=== PATIENT | male | born 1995 | race African-American/Black ===

== ENCOUNTER 2019-07-26 22:37 | Emergency (ER) | payer OTHER ==
[~2019-07-26] VITALS: Ht 190.5 cm; Wt 149.7 kg
[~2019-07-26 22:37] MED LIST: PRED50TA PO; PROAIR RESPICL90 MCG IH
[2019-07-26 23:05] LABS: BASO # 0.1 x10^3/uL (0.0-0.2); BASO % 1 % (0-3); EOS # 0.5 x10^3/uL (0.0-0.7); EOS % 6 % (0-3); HEMATOCRIT 43.6 % (39.0-53.0); HEMOGLOBIN 15.3 g/dL (13.0-17.5); LYMPH # 3.1 x10^3/uL (1.0-4.8); LYMPH % 40 % (24-48); MEAN CORPUSCULAR HEMOGLOBIN 33 pg (25-35); MEAN CORPUSCULAR HGB CONC 35 g/dL (31-37); MEAN CORPUSCULAR VOLUME 94 fL (79-100); MONO # 0.5 x10^3/uL (0.0-1.1); MONO % 6 % (0-9); NEUT # 3.6 x10^3/uL (1.8-7.7); NEUT % 46 % (31-73); PLATELET COUNT 216 x10^3/uL (140-400); RED BLOOD COUNT 4.66 x10^6/uL (4.30-5.70); WHITE BLOOD COUNT 7.7 x10^3/uL (4.0-11.0)
[2019-07-26 23:18] LABS: CALCIUM 9.5 mg/dL (8.5-10.1); CREATININE 1.1 mg/dL (0.7-1.3); GFR 97.9; POTASSIUM 4.3 mmol/L (3.5-5.1)
[2019-07-26 23:24] LABS: ALBUMIN 3.7 g/dL (3.4-5.0); ALBUMIN/GLOBULIN RATIO 0.9 (1.0-1.7); TOTAL BILIRUBIN 0.3 mg/dL (0.2-1.0); TOTAL PROTEIN 7.7 g/dL (6.4-8.2)
[2019-07-27 01:23] VITALS: BP 144/80
--- NOTE | 2019-07-27 01:34 | PHYS DOC ---
Past Medical History Past Medical History: No Pertinent History Past Surgical History: No Surgical History Alcohol Use: Occasionally Drug Use: Marijuana Adult General Chief Complaint Chief Complaint: LOWER EXTREMITY SWELLING HPI HPI Patient is a 24 year old [f__sex] who presents with [] Review of Systems Review of Systems Constitutional: Denies fever or chills [] Eyes: Denies change in visual acuity, redness, or eye pain [] HENT: Denies nasal congestion or sore throat [] Respiratory: Denies cough or shortness of breath [] Cardiovascular: No additional information not addressed in HPI [] GI: Denies abdominal pain, nausea, vomiting, bloody stools or diarrhea [] : Denies dysuria or hematuria [] Musculoskeletal: Denies back pain or joint pain [] Integument: Denies rash or skin lesions [] Neurologic: Denies headache, focal weakness or sensory changes [] Endocrine: Denies polyuria or polydipsia [] All other systems were reviewed and found to be within normal limits, except as documented in this note. Allergies Allergies Allergies Coded Allergies Type Severity Reaction Last Updated Verified No Known Drug Allergies 10/16/13 No Physical Exam Physical Exam Constitutional: Well developed, well nourished, no acute distress, non-toxic appearance. [] HENT: Normocephalic, atraumatic, bilateral external ears normal, oropharynx moist, no oral exudates, nose normal. [] Eyes: PERRLA, EOMI, conjunctiva normal, no discharge. [] Neck: Normal range of motion, no tenderness, supple, no stridor. [] Cardiovascular:Heart rate regular rhythm, no murmur [] Lungs & Thorax: Bilateral breath sounds clear to auscultation [] Abdomen: Bowel sounds normal, soft, no tenderness, no masses, no pulsatile mas ses. [] Skin: Warm, dry, no erythema, no rash. [] Back: No tenderness, no CVA tenderness. [] Extremities: No tenderness, no cyanosis, no clubbing, ROM intact, no edema. [] Neurologic: Alert and oriented X 3, normal motor function, normal sensory function, no focal deficits noted. [] Psychologic: Affect normal, judgement normal, mood normal. [] Current Patient Data Vital Signs Vital Signs Date Time Temp Pulse Resp B/P (MAP) Pulse Ox O2 Delivery O2 Flow Rate FiO2 07/26/19 22:40 97.9 72 16 164/75 (104) 97 Room Air 97.9 Lab Values Laboratory Tests Test 07/26/19 22:50 07/26/19 23:45 White Blood Count 7.7 x10^3/uL (4.0-11.0) Red Blood Count 4.66 x10^6/uL (4.30-5.70) Hemoglobin 15.3 g/dL (13.0-17.5) Hematocrit 43.6 % (39.0-53.0) Mean Corpuscular Volume 94 fL (79-100) Mean Corpuscular Hemoglobin 33 pg (25-35) Mean Corpuscular Hemoglobin Concent 35 g/dL (31-37) Red Cell Distribution Width 14.0 % (11.5-14.5) Platelet Count 216 x10^3/uL (140-400) Neutrophils (%) (Auto) 46 % (31-73) Lymphocytes (%) (Auto) 40 % (24-48) Monocytes (%) (Auto) 6 % (0-9) Eosinophils (%) (Auto) 6 % (0-3) H Basophils (%) (Auto) 1 % (0-3) Neutrophils # (Auto) 3.6 x10^3/uL (1.8-7.7) Lymphocytes # (Auto) 3.1 x10^3/uL (1.0-4.8) Monocytes # (Auto) 0.5 x10^3/uL (0.0-1.1) Eosinophils # (Auto) 0.5 x10^3/uL (0.0-0.7) Basophils # (Auto) 0.1 x10^3/uL (0.0-0.2) Sodium Level 142 mmol/L (136-145) Potassium Level 4.3 mmol/L (3.5-5.1) Chloride Level 105 mmol/L (98-107) Carbon Dioxide Level 28 mmol/L (21-32) Anion Gap 9 (6-14) Blood Urea Nitrogen 13 mg/dL (8-26) Creatinine 1.1 mg/dL (0.7-1.3) Estimated GFR (Cockcroft-Gault) 97.9 BUN/Creatinine Ratio 12 (6-20) Glucose Level 91 mg/dL (70-99) Calcium Level 9.5 mg/dL (8.5-10.1) Total Bilirubin 0.3 mg/dL (0.2-1.0) Aspartate Amino Transferase (AST) 40 U/L (15-37) H Alanine Aminotransferase (ALT) 36 U/L (16-63) Alkaline Phosphatase 70 U/L (46-116) Troponin I Quantitative < 0.017 ng/mL (0.000-0.055) [id number]-Type Natriuretic Peptide 13 pg/mL (0-124) Total Protein 7.7 g/dL (6.4-8.2) Albumin 3.7 g/dL (3.4-5.0) Albumin/Globulin Ratio 0.9 (1.0-1.7) L D-Dimer (Ely) 0.32 ug/mlFEU (0.00-0.50) Laboratory Tests 07/26/19 22:50 Laboratory Tests 07/26/19 22:50 EKG EKG [] Radiology/Procedures Radiology/Procedures [] Course & Med Decision Making Course & Med Decision Making Pertinent Labs and Imaging studies reviewed. (See chart for details) [] Dragon Disclaimer Dragon Disclaimer This electronic medical record was generated, in whole or in part, using a voice recognition dictation system. Departure Departure Impression: Primary Impression: Lower extremity edema Disposition: 01 HOME, SELF-CARE Condition: STABLE Referrals: NO PCP (PCP) Patient Instructions: Edema, [id number] Additional Instructions: Labs and imaging reviewed Chest xray without pulmonary edema Ddimer (DVT marker) is negative Return to the ER with shortness of breath, fever, increased lower extremity edema, altered mental status CHRISTI HWANG MD Jul 27, 2019 01:34
--- NOTE | 2019-07-27 04:01 | PHYS DOC ---
Past Medical History Past Medical History: No Pertinent History Past Surgical History: No Surgical History Alcohol Use: Occasionally Drug Use: Marijuana Adult General Chief Complaint Chief Complaint: LOWER EXTREMITY SWELLING [facility] HPI Patient is a 24 year old male with complaints of bilateral lower ext swelling. He states left leg is worse than right. Denies fever, pain, chest pain, nausea. Does complain of SOB on exam however intermittent. Patient denies history of blood clot. States he does smoke and use ETOH. Patient states swelling is worse after being on his feet all day. Review of Systems Review of Systems Constitutional: Denies fever or chills [] Eyes: Denies change in visual acuity, redness, or eye pain [] HENT: Denies nasal congestion or sore throat [] Respiratory: SOB Cardiovascular: No additional information not addressed in HPI [] GI: Denies abdominal pain, nausea, vomiting, bloody stools or diarrhea [] Musculoskeletal: Denies back pain or joint pain, + bilateral lower ext edema [] Integument: Denies rash or skin lesions [] Neurologic: Denies headache, focal weakness or sensory changes [] All other systems were reviewed and found to be within normal limits, except as documented in this note. Allergies Allergies Allergies Coded Allergies Type Severity Reaction Last Updated Verified No Known Drug Allergies 10/16/13 No Physical Exam Physical Exam Constitutional: Well developed, well nourished, no acute distress, non-toxic appearance. [] HENT: Normocephalic, atraumatic, bilateral external ears normal, oropharynx moist, no oral exudates, nose normal. [] Eyes: PERRLA, EOMI, conjunctiva normal, no discharge. [] Cardiovascular:Heart rate regular rhythm, no murmur [] Lungs & Thorax: Bilateral breath sounds clear to auscultation [] Abdomen: Bowel sounds normal, soft, no tenderness, no masses, no pulsatile masses. [] Skin: Warm, dry, no erythema, no rash. [] Extremities: No tenderness, no cyanosis, no clubbing, trace edema bilateral lower ext Neurologic: Alert and oriented X 3, no focal deficits noted. [] Psychologic: Affect normal, judgement normal, mood normal. [] Current Patient Data Vital Signs Vital Signs Date Time Temp Pulse Resp B/P (MAP) Pulse Ox O2 Delivery O2 Flow Rate FiO2 07/27/19 01:23 70 18 144/80 (101) 95 Room Air 9/21/19 22:40 97.9 97.9 Lab Values Laboratory Tests Test 07/26/19 22:50 07/26/19 23:45 White Blood Count 7.7 x10^3/uL (4.0-11.0) Red Blood Count 4.66 x10^6/uL (4.30-5.70) Hemoglobin 15.3 g/dL (13.0-17.5) Hematocrit 43.6 % (39.0-53.0) Mean Corpuscular Volume 94 fL (79-100) Mean Corpuscular Hemoglobin 33 pg (25-35) Mean Corpuscular Hemoglobin Concent 35 g/dL (31-37) Red Cell Distribution Width 14.0 % (11.5-14.5) Platelet Count 216 x10^3/uL (140-400) Neutrophils (%) (Auto) 46 % (31-73) Lymphocytes (%) (Auto) 40 % (24-48) Monocytes (%) (Auto) 6 % (0-9) Eosinophils (%) (Auto) 6 % (0-3) H Basophils (%) (Auto) 1 % (0-3) Neutrophils # (Auto) 3.6 x10^3/uL (1.8-7.7) Lymphocytes # (Auto) 3.1 x10^3/uL (1.0-4.8) Monocytes # (Auto) 0.5 x10^3/uL (0.0-1.1) Eosinophils # (Auto) 0.5 x10^3/uL (0.0-0.7) Basophils # (Auto) 0.1 x10^3/uL (0.0-0.2) Sodium Level 142 mmol/L (136-145) Potassium Level 4.3 mmol/L (3.5-5.1) Chloride Level 105 mmol/L (98-107) Carbon Dioxide Level 28 mmol/L (21-32) Anion Gap 9 (6-14) Blood Urea Nitrogen 13 mg/dL (8-26) Creatinine 1.1 mg/dL (0.7-1.3) Estimated GFR (Cockcroft-Gault) 97.9 BUN/Creatinine Ratio 12 (6-20) Glucose Level 91 mg/dL (70-99) Calcium Level 9.5 mg/dL (8.5-10.1) Total Bilirubin 0.3 mg/dL (0.2-1.0) Aspartate Amino Transferase (AST) 40 U/L (15-37) H Alanine Aminotransferase (ALT) 36 U/L (16-63) Alkaline Phosphatase 70 U/L (46-116) Troponin I Quantitative < 0.017 ng/mL (0.000-0.055) JA-Vho-Z-Type Natriuretic Peptide 13 pg/mL (0-124) Total Protein 7.7 g/dL (6.4-8.2) Albumin 3.7 g/dL (3.4-5.0) Albumin/Globulin Ratio 0.9 (1.0-1.7) L D-Dimer (Ely) 0.32 ug/mlFEU (0.00-0.50) Laboratory Tests 07/26/19 22:50 Laboratory Tests 07/26/19 22:50 EKG EKG [] Radiology/Procedures Radiology/Procedures Chest xray without evidence of acute process - wet read[] Course & Med Decision Making Course & Med Decision Making Pertinent Labs and Imaging studies reviewed. (See chart for details) []Patient is a 24 year old male with complaints of bilateral lower ext swelling. He states left leg is worse than right. Denies fever, pain, chest pain, nausea. Does complain of SOB on exam however intermittent. Patient denies history of blood clot. States he does smoke and use ETOH. Patient states swelling is worse after being on his feet all day. Labs/imaging reviewed. Ddimer within normal limits. CXR reviewed without acute consolidation. Plan for dc home. Discussed with patient no acute findings. Dragon Disclaimer Dragon Disclaimer This electronic medical record was generated, in whole or in part, using a voice recognition dictation system. Departure Departure Impression: Primary Impression: Lower extremity edema Disposition: HOME, SELF-CARE Condition: STABLE Referrals: NO PCP (PCP) Patient Instructions: Edema, [id number] Additional Instructions: Labs and imaging reviewed Chest xray without pulmonary edema Ddimer (DVT marker) is negative Return to the ER with shortness of breath, fever, increased lower extremity edema, altered mental status CHRISTI HWANG MD Jul 27, 2019 04:01
--- NOTE | 2019-07-27 06:54 | RAD ---
EXAM: CHEST 1 VIEW History: Dyspnea COMPARISON: 10/16/2013 TECHNIQUE: Single portable radiograph of the chest FINDINGS: The cardiac silhouette is unremarkable. Improved airspace opacities identified in the bilateral lungs. The costophrenic sulci are clear and well demarcated. IMPRESSION: Improved airspace opacities identified in the bibasilar lungs likely atelectasis or infiltrates. Electronically signed by: Lawrence Galindo MD (07/27/2019 6:51 AM) [facility]
--- NOTE | 2019-07-28 06:14 | EKG ---
[facility] [address] [place] [address] Test Date: 2019-07-26 Test Time: 23:31:26 Pat Name: AGUSTÍN HOOD Department: Room: Gender: M Package Winder: : 1995 Requested By: CHRISTI HWANG Order Number: [id number] Reading MD: Measurements Intervals [place] Rate: 75 P: 42 WY: 210 QRS: 58 QRSD: 86 T: 28 QT: 366 QTc: 415 Interpretive Statements SINUS RHYTHM NON SPECIFIC ST-T ABNORMALITY (ELEVATION) OTHERWISE NORMAL ECG No previous ECG available for comparison
== END 2019-07-27 01:55 | disposition home or self-care (01) ==
LOC: ER 22:37
DX: R60.0 Localized edema (principal); R06.00 Dyspnea, unspecified
CPT/HCPCS: 36415; 71045; 80053; 83880; 84484; 85025; 85379; 93005; 99285-25

== ENCOUNTER 2021-12-21 11:04 | Observation (INO) | payer OTHER ==
[~2021-12-21] VITALS: Ht 190.5 cm; Wt 170.4 kg
--- NOTE | 2021-12-21 11:08 | PHYS DOC ---
Past Medical History Past Medical History: No Pertinent History Past Surgical History: No Surgical History Smoking Status: Current Every Day Smoker Alcohol Use: Occasionally Drug Use: Marijuana General Adult EDM: Chief Complaint: CHEST PAIN HPI: HPI: Patient is a 26 year old male who presents here with chest pain which woke him up around 1 AM today. The pain is progressive he worsened since that time. The pain is midsternal, does not radiate. He reports dyspnea, dizziness, diaphoresis. He denies vomiting, he did have some nausea earlier, this is currently resolved. He denies lower extremity pain or swelling. He denies syncope or near syncope. He denies any previous similar symptoms. He is diaphoretic on arrival. He reports that he has gained 100 pounds within the last year. He last saw primary care doctor over a year ago when he lived in [place]. He reports having no known medical problems. He reportedly has not been told he has hypertension, though he is hypertensive on arrival. He reports having never been prescribed any medications for any chronic health issues. He smokes tobacco, smokes marijuana, drinks alcohol heavily on the weekends. 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 He does not currently have a primary care physician here in the area. Patient reports full family members with history of hypertension and high cholesterol and heart disease. Review of Systems: Review of Systems: Constitutional: Denies fever or chills. [] HENT: Denies nasal congestion or sore throat. [] Respiratory: Denies cough. Reports dyspnea associated with chest pain Cardiovascular: Chest pain, lower extremity swelling GI: Denies abdominal pain, vomiting. Reportedly had nausea earlier, currently resolved Musculoskeletal: Denies back pain or joint pain. [] Integument: Denies rash. [] Neurologic: Denies headache, focal weakness or sensory changes. [] Psychiatric: Denies depression or anxiety. [] Heart Score: C/O Chest Pain: Yes HEART Score for Chest Pain: HEART Score for Chest Pain Response (Comments) Value History Moderately Suspicious 1 ECG Nonspecific Repolarizatio 1 Age < 45 0 Risk Factors 1 or 2 Risk Factors 1 Troponin < Normal Limit 0 Total 3 Risk Factors: Risk Factors: DM, Current or recent (<one month) smoker, HTN, HLP, family history of CAD, obesity. Risk Scores: Score 0 - 3: 2.5% MACE over next 6 weeks - Discharge Home Score 4 - 6: 20.3% MACE over next 6 weeks - Admit for Clinical Observation Score 7 - 10: 72.7% MACE over next 6 weeks - Early Invasive Strategies Allergies: Allergies: Allergies Coded Allergies Type Severity Reaction Last Updated Verified No Known Drug Allergies 10/16/13 No Physical Exam: PE: Constitutional: Well developed, well nourished, appears to be mildly uncomfortable, diaphoretic, nontoxic, appears older than stated age. HENT: Normocephalic, atraumatic, mucous membranes are moist, no facial or oral swelling. Eyes: PERRL, EOMI, conjunctiva normal, no discharge. [] Neck: Normal range of motion, no tenderness, supple, no stridor. Trachea midline, no JVD, no meningismus Cardiovascular:Heart rate regular rhythm, 2 radial and +2 posterior tibial pulses bilaterally. Lungs & Thorax: Diminished breath sounds bilateral bases, faint expiratory wheezing, equal chest rise, no evidence of chest or thorax trauma, no cyanosis, speaks in full and clear sentences, no stridor, no rhonchi. Abdomen: Grant is obese, soft, nondistended, nontender to palpation, no palpable pulsatile mass Skin: Warm, facial, neck and chest diaphoresis. No rash. No erythema or jaundice. Back: No tenderness, no deformity Extremities: No tenderness, no cyanosis, no clubbing, ROM intact, bilateral, symmetric 1+ nonpitting lower extremity edema. No calf tenderness. Neurologic: Alert and oriented X 3, normal motor function, normal sensory function, no focal deficits noted. [] Psychologic: Affect is flat, he is cooperative and pleasant. EKG: EKG: EKG is interpreted at 1114 Rhythm is sinus Rate is 75 bpm [place] is normal No STEMI Radiology/Procedures: Radiology/Procedures: IMAGING REPORT Signed PATIENT: AGUSTÍN HOOD TACCOUNT: [id number] : 1995 LOCATION: ER AGE: 26 SEX: M EXAM STATUS: PRE ER ORD. PHYSICIAN: NELLI LOCK DO REASON: chest pain PROCEDURE: PORTABLE CHEST 1V EXAM: Chest, single view. HISTORY: Chest pain. COMPARISON: 07/26/2019 FINDINGS: A frontal view of the chest is obtained. There is no infiltrate, pleural effusion or pneumothorax. The heart is normal in size. IMPRESSION: No acute pulmonary finding. Electronically signed by: Makenzie Espinosa MD (12/21/2021 11:37 AM) [id number] DICTATED and SIGNED BY: MAKENZIE ESPINOSA MD DATE: 12/21/21 [id number] Course & Med Decision Making: Course & Med Decision Making Pertinent Labs and Imaging studies reviewed. (See chart for details) The patient is given oral aspirin and is pain-free after 1 sublingual nitro glycerin. Blood pressure is improved. Blood pressure is 129/81, heart rate 96- 98, O2 saturation 98%, as of 12:55 PM. I have discussed the findings, differential diagnosis and plan of care with him. I recommended hospitalization, serial troponin exams, cardiology consultation. He agrees to this. He is excepted for admission by Dr. Donnelly. Bibi Disclaimer: Bibi Disclaimer: This electronic medical record was generated, in whole or in part, using a voice recognition dictation system. Departure Departure Impression: Primary Impression: Chest pain Qualified Codes: R07.9 - Chest pain, unspecified Disposition: ADMITTED INPATIENT Admitting Physician: JUAN PABLO (Dr. Donnelly) Referrals: NO PCP (PCP) NELLI LOCK DO Dec 21, 2021 11:08
[2021-12-21] MEDS ORDERED: ASPIRIN CHEWABLE 81 MG TABLET. PO ONE (11:30)
[2021-12-21] MEDS ORDERED: NITROGLYCERIN SUBLINGUAL 0.4 MG BOTTLE OF 25. SL PRN ×2 (11:30→13:30)
[2021-12-21 11:39] LABS: BASO # 0.1 x10^3/uL (0.0-0.2); BASO % 1 % (0-3); EOS # 0.3 x10^3/uL (0.0-0.7); EOS % 5 % (0-3); HEMATOCRIT 43.9 % (39.0-53.0); HEMOGLOBIN 14.6 g/dL (13.0-17.5); LYMPH # 2.5 x10^3/uL (1.0-4.8); LYMPH % 42 % (24-48); MEAN CORPUSCULAR HEMOGLOBIN 30 pg (25-35); MEAN CORPUSCULAR HGB CONC 33 g/dL (31-37); MEAN CORPUSCULAR VOLUME 91 fL (79-100); MONO # 0.5 x10^3/uL (0.0-1.1); MONO % 9 % (0-9); NEUT # 2.5 x10^3/uL (1.8-7.7); NEUT % 43 % (31-73); PLATELET COUNT 216 x10^3/uL (140-400); RED BLOOD COUNT 4.83 x10^6/uL (4.30-5.70); RED CELL DISTRIBUTION WIDTH 14.2 % (11.5-14.5); WHITE BLOOD COUNT 5.9 x10^3/uL (4.0-11.0)
--- NOTE | 2021-12-21 11:39 | RAD ---
EXAM: Chest, single view. HISTORY: Chest pain. COMPARISON: 07/26/2019 FINDINGS: A frontal view of the chest is obtained. There is no infiltrate, pleural effusion or pneumo thorax. The heart is normal in size. IMPRESSION: No acute pulmonary finding. Electronically signed by: Makenzie Taylor MD (12/21/2021 11:37 AM) [id number]
[2021-12-21 11:48] LABS: CALCIUM 8.6 mg/dL (8.5-10.1); GFR 107.7; POTASSIUM 3.9 mmol/L (3.5-5.1)
[2021-12-21 11:53] LABS: ALBUMIN 3.2 g/dL (3.4-5.0); ALBUMIN/GLOBULIN RATIO 0.7 (1.0-1.7); MAGNESIUM 1.8 mg/dL (1.8-2.4); TOTAL BILIRUBIN 0.2 mg/dL (0.2-1.0); TOTAL PROTEIN 7.6 g/dL (6.4-8.2)
--- NOTE | 2021-12-21 12:40 | PDOC1 ---
History and Physical Date of Admission Date of Admission DATE: 12/21/21 TIME: 12:39 Identification/Chief Complaint Chief Complaint Chest pain Source Source: Patient History of Present Illness History of Present Illness Mr Nicolas is a 26 yo male morbidly obese with no PMHx who presents to ED c/o chest pain which woke him up at 0130 earlier in the day. The pain is progressive he worsened since that time. He describes it as a "heating pain". The pain is midsternal, does radiate into his right arm. He has associated dyspnea, dizziness, diaphoresis. He notes he had some white frothy sputum and has difficulty getting a deep breath. He had nausea and no vomiting. He denies lower extremity pain or swelling. His symptoms almost completely resolved with a dose of oral nitroglycerin in the ED. He fell asleep in a chair last night and awoke like this. He does note his fiance has told him that he frequently stops breathing while sleeping. 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 He reports that he has gained 100 pounds within the last year, he notes that this happened when he was living in [facility] and attributes his weight gain to his fiance's "good cooking". He notes he had labs 2 years ago and at that time was nondiabetic and he is never taken any medications. He has a family history of hypertension and diabetes on both his maternal and paternal side and had a paternal uncle who before age 50 of coronary artery disease. He has not seen a primary care physician in over a year. He smokes Black and mild cigarillos over 6/day, drinks alcohol occasionally usually more than 7 total drinks per week. He does not use illicit drugs. No recent travel or sick contacts. WBC 5.9, Hb 14.6, platelets 216, NA 141, K3.9, BUN 13, CR 1, glucose 112, calcium 8.6, magnesium 1.8, Bilirubin 0.2, AST 39, ALT 72, alkaline phosphatase 91, creatinine kinase 706 high-sensitivity troponin is 9, NT proBNP 871, albumin is 3.2, triglycerides 537, lipase 67, D-dimer 0.45 alcohol undetectable EKG sinus rate of 75 bpm, normal axis and intervals otherwise no ST elevations or T [place], QTC 416, [place] 210 Chest radiograph no acute findings Past Medical History Cardiovascular: No pertinent hx Past Surgical History Past Surgical History: No pertinent history Current Medications Current Medications Current Medications Aspirin (Aspirin Chewable) 324 mg 1X ONCE PO Last administered on 12/21/21at 11:55; Start 12/21/21 at 11:30; Stop 12/21/21 at 11:31; Status DC Nitroglycerin (Nitrostat) 0.4 mg PRN Q5MIN PRN SL CHEST PAIN Last administered on 12/21/21at 11:55; Start 12/21/21 at 11:30 Active Scripts Active Prednisone 50 Mg Tablet 1 Tab PO DAILY Proair Respiclick (Albuterol Sulfate) 90 Mcg Aer.pow.ba 1 Puff IH PRN Q6HRS PRN Reported No Known Medications Prior To Admisstion (Info) Each 1 Each Allergies Allergies: Coded Allergies: No Known Drug Allergies (Unverified , 12/21/21) ROS General: YES: Fatigue, Malaise; No: Chills, Night Sweats, Appetite, Other PSYCHOLOGICAL ROS: No: Anxiety, Behavioral Disorder, Concentration difficultie, Decreased libido, Depression, Disorientation, Hallucinations, Hostility, Irritablity, Memory difficulties, Mood Swings, Obsessive thoughts, Physical abuse, Sexual abuse, Sleep disturbances, Suicidal ideation, Other Eyes: No Blurry vision, No Decreased vision, No Double vision, No Dry eyes, No Excessive tearing, No Eye Pain, No Itchy Eyes, No Loss of vision, No Photophobia, No Scotomata, No Uses contacts, No Uses glasses, No Other HEENT: No: Heacaches, Visual Changes, Hearing change, Nasal congestion, Nasal discharge, Oral lesions, Sinus pain, Sore Throat, Epistaxis, Sneezing, Snoring, Tinnitus, Vertigo, Vocal changes, Other ALLERGY AND IMMUNOLOGY: No: Hives, Insect Bite Sensitivity, Itchy/Watery Eyes, Nasal Congestion, Post Nasal Drip, Seasonal Allergies, Other Hematological and Lymphatic: No: Bleeding Problems, Blood Clots, Blood Transfusions, Brusing, Night Sweats, Pallor, Swollen Lymph Nodes, Other ENDOCRINE: No: Breast Changes, Galactorrhea, Hair Pattern Changes, Hot Flashes, Malaise/lethargy, Mood Swings, Palpitations, Polydipsia/polyuria, Skin Changes, Temperature Intolerance, Unexpected Weight Changes, Other Breast: No New/Changing Breast Lumps, No Nipple changes, No Nipple discharge, No Other Respiratory: YES: Cough, Shortness of breath, SOB with excertion; No: Hemoptysis, Orthopnea, Pleuritic Pain, Sputum Changes, Stridor, Tachypnea, Wheezing, Other Cardiovascular: yes Chest Pain; No Palpitations, No Orthopnea, No Paroxysmal Noc. Dyspnea, No Edema, No Lt Headedness, No Other Gastrointestinal: Yes Nausea; No Vomiting, No Abdominal Pain, No Diarrhea, No Constipation, No Melena, No Hematochezia, No Other Genitourinary: No Dysuria, No Frequency, No Incontinence, No Hematuria, No Retention, No Discharge, No Urgency, No Pain, No Flank Pain, No Other, No , No , No , No , No , No , No Musculoskeletal: No Gait Disturbance, No Joint Pain, No Joint Stiffness, No Joint Swelling, No Muscle Pain, No Muscular Weakness, No Pain In:, No Swelling In:, No Other Neurological: No Behavorial Changes, No Bowel/Bladder ControlChng, No Confusion, No Dizziness, No Gait Disturbance, No Headaches, No Impaired Coord/balance, No Memory Loss, No Numbness/Tingling, No Seizures, No Speech Problems, No Tremors, No Visual Changes, No Weakness, No Other Skin: No Dry Skin, No Eczema, No Hair Changes, No Lumps, No Mole Changes, No Mottling, No Nail Changes, No Pruritus, No Rash, No Skin Lesion Changes, No Other, No Acne Physical Exam General: Alert, Oriented X3, Cooperative, mild distress HEENT: Atraumatic, PERRLA, EOMI, Mucous membr. moist/pink Lungs: Clear to auscultation, Normal air movement Heart: S1S2, RRR, no thrills, no rubs, no gallops, no murmurs Abdomen: Normal bowel sounds, Soft, No tenderness, No hepatosplenomegaly, No masses Rectal Exam: not examined Extremities: No clubbing, No cyanosis, No edema, Normal pulses, No tenderness/swelling Skin: No rashes, No breakdown, No significant lesion Neuro: Normal gait, Normal speech, Strength at 5/5 X4 ext, Normal tone, Sensation intact, Cranial nerves 3-12 NL, Reflexes 2+ Psych/Mental Status: Mental status NL, Mood NL Vitals Vitals Vital Signs Date Time Temp Pulse Resp B/P (MAP) Pulse Ox O2 Delivery O2 Flow Rate FiO2 12/21/21 11:55 76 178/79 12/21/21 11:06 98.0 14 100 Room Air 98.0 Labs Labs Laboratory Tests Test 12/21/21 11:22 White Blood Count 5.9 x10^3/uL (4.0-11.0) Red Blood Count 4.83 x10^6/uL (4.30-5.70) Hemoglobin 14.6 g/dL (13.0-17.5) Hematocrit 43.9 % (39.0-53.0) Mean Corpuscular Volume 91 fL (79-100) Mean Corpuscular Hemoglobin 30 pg (25-35) Mean Corpuscular Hemoglobin Concent 33 g/dL (31-37) Red Cell Distribution Width 14.2 % (11.5-14.5) Platelet Count 216 x10^3/uL (140-400) Neutrophils (%) (Auto) 43 % (31-73) Lymphocytes (%) (Auto) 42 % (24-48) Monocytes (%) (Auto) 9 % (0-9) Eosinophils (%) (Auto) 5 % (0-3) Basophils (%) (Auto) 1 % (0-3) Neutrophils # (Auto) 2.5 x10^3/uL (1.8-7.7) Lymphocytes # (Auto) 2.5 x10^3/uL (1.0-4.8) Monocytes # (Auto) 0.5 x10^3/uL (0.0-1.1) Eosinophils # (Auto) 0.3 x10^3/uL (0.0-0.7) Basophils # (Auto) 0.1 x10^3/uL (0.0-0.2) D-Dimer (Ely) 0.45 ug/mlFEU (0.00-0.50) Sodium Level 141 mmol/L (136-145) Potassium Level 3.9 mmol/L (3.5-5.1) Chloride Level 104 mmol/L (98-107) Carbon Dioxide Level 30 mmol/L (21-32) Anion Gap 7 (6-14) Blood Urea Nitrogen 13 mg/dL (8-26) Creatinine 1.0 mg/dL (0.7-1.3) Estimated GFR (Cockcroft-Gault) 107.7 BUN/Creatinine Ratio 13 (6-20) Glucose Level 112 mg/dL (70-99) Calcium Level 8.6 mg/dL (8.5-10.1) Magnesium Level 1.8 mg/dL (1.8-2.4) Total Bilirubin 0.2 mg/dL (0.2-1.0) Aspartate Amino Transf (AST/SGOT) 39 U/L (15-37) Alanine Aminotransferase (ALT/SGPT) 72 U/L (16-63) Alkaline Phosphatase 91 U/L (46-116) Creatine Kinase 706 U/L (39-308) Troponin I High Sensitivity 9 ng/L (4-75) XI-Ozb-X-Type Natriuretic Peptide 171 pg/mL (0-124) Total Protein 7.6 g/dL (6.4-8.2) Albumin 3.2 g/dL (3.4-5.0) Albumin/Globulin Ratio 0.7 (1.0-1.7) Lipase 67 U/L (73-393) Ethyl Alcohol Level < 10 mg/dL (0-10) Laboratory Tests Test 12/21/21 11:22 White Blood Count 5.9 x10^3/uL (4.0-11.0) Red Blood Count 4.83 x10^6/uL (4.30-5.70) Hemoglobin 14.6 g/dL (13.0-17.5) Hematocrit 43.9 % (39.0-53.0) Mean Corpuscular Volume 91 fL (79-100) Mean Corpuscular Hemoglobin 30 pg (25-35) Mean Corpuscular Hemoglobin Concent 33 g/dL (31-37) Red Cell Distribution Width 14.2 % (11.5-14.5) Platelet Count 216 x10^3/uL (140-400) Neutrophils (%) (Auto) 43 % (31-73) Lymphocytes (%) (Auto) 42 % (24-48) Monocytes (%) (Auto) 9 % (0-9) Eosinophils (%) (Auto) 5 % (0-3) Basophils (%) (Auto) 1 % (0-3) Neutrophils # (Auto) 2.5 x10^3/uL (1.8-7.7) Lymphocytes # (Auto) 2.5 x10^3/uL (1.0-4.8) Monocytes # (Auto) 0.5 x10^3/uL (0.0-1.1) Eosinophils # (Auto) 0.3 x10^3/uL (0.0-0.7) Basophils # (Auto) 0.1 x10^3/uL (0.0-0.2) D-Dimer (Ely) 0.45 ug/mlFEU (0.00-0.50) Sodium Level 141 mmol/L (136-145) Potassium Level 3.9 mmol/L (3.5-5.1) Chloride Level 104 mmol/L (98-107) Carbon Dioxide Level 30 mmol/L (21-32) Anion Gap 7 (6-14) Blood Urea Nitrogen 13 mg/dL (8-26) Creatinine 1.0 mg/dL (0.7-1.3) Estimated GFR (Cockcroft-Gault) 107.7 BUN/Creatinine Ratio 13 (6-20) Glucose Level 112 mg/dL (70-99) Calcium Level 8.6 mg/dL (8.5-10.1) Magnesium Level 1.8 mg/dL (1.8-2.4) Total Bilirubin 0.2 mg/dL (0.2-1.0) Aspartate Amino Transf (AST/SGOT) 39 U/L (15-37) Alanine Aminotransferase (ALT/SGPT) 72 U/L (16-63) Alkaline Phosphatase 91 U/L (46-116) Creatine Kinase 706 U/L (39-308) Troponin I High Sensitivity 9 ng/L (4-75) HD-Bvx-C-Type Natriuretic Peptide 171 pg/mL (0-124) Total Protein 7.6 g/dL (6.4-8.2) Albumin 3.2 g/dL (3.4-5.0) Albumin/Globulin Ratio 0.7 (1.0-1.7) Lipase 67 U/L (73-393) Ethyl Alcohol Level < 10 mg/dL (0-10) Images Images Chest radiograph: A frontal view of the chest is obtained. There is no infiltrate, pleural effusion or pneumothorax. The heart is normal in size. IMPRESSION: No acute pulmonary finding. VTE Prophylaxis Ordered VTE Prophylaxis Devices: No VTE Pharmacological Prophylaxi: Yes Assessment/Plan Assessment/Plan Chest pain - likely GERD, atypical, though relieved by NTG. most likely GERD with associated esophageal spasm. Will consult cardiology, trops, tele Super morbid obesity - counseled on lifestyle modification Hypertriglyceridemia - should be on fibrate + prescription fish oil. Needs A1c, concerning he may be diabetic Transaminitis - likely related to fatty liver vs hypertriglyceridemia, will treat, trend Smoker - counseled extensively on cessation FEN - Cardiac diet PPX - lovenox FULL CODE Dispo - observation for chest pain Surrogate decision maker is his mother: Andree Nicolas Justifications for Admission Other Justification RENÉE BARAJAS MD Dec 21, 2021 12:40
--- NOTE | 2021-12-21 13:25 | NUR ---
ADMISSION PT ARRIVES FROM ED VIA GURNEY. HE IS ON RA, DENIES PAIN IN ANY LOCATION. PIV IS SL. TELE IS APPLIED AT THIS TIME. DENIES ANY MEDICAL HISTORY.
[2021-12-21 13:30] VITALS: BP 168/98
[2021-12-21] MEDS ORDERED: ACETAMINOPHEN 325 MG TABLET. PO PRN ×2 (13:30→16:00)
[2021-12-21] MEDS ORDERED: IV NORMAL SALINE 1000ML BAG 1,000 ML IV SCH (13:30)
[2021-12-21] MEDS ORDERED: ONDANSETRON PF 4 MG/2 ML VIAL. IVP PRN ×2 (13:30→16:00)
--- NOTE | 2021-12-21 14:32 | EKG ---
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
[2021-12-21 14:38] VITALS: BP 167/91
--- NOTE | 2021-12-21 15:04 | PDOC2 ---
CYN BECKFORD PRODUCTION LINE ASSEMBLER 12/21/21 1504: CARDIAC CONSULT DATE OF CONSULT Date of Consult DATE: 12/21/21 TIME: 14:59 REASON FOR CONSULT Reason for Consult: Chest pain REFERRING PHYSICIAN Referring Physician: Dr. Adames SOURCE Source: Chart review, Patient HISTORY OF PRESENT ILLNESS HISTORY OF PRESENT ILLNESS This is a 26 yo male who presented secondary to chest pain. Patient reports he woke up about 1 am this morning with diaphoresis, chest pressure, and congestion. Had difficulty breathing. Reports he thought he would feel better if he got up and moved around. He continued to have central chest congestion/p ressure so he came to the ED for further evaluations and treatment. He does reports feeling better, but chest/nasal congestion persists. Pain/pressure did not radiate. No associated dizziness, palpitations. No prior medical history. Does reports 75-100# weight gain over the last year that he attributes to poor diet. Also reports snoring at night with periods of apnea. PAST MEDICAL HISTORY Cardiovascular: HTN PAST SURGICAL HISTORY Past Surgical History: No pertinent history FAMILY HISTORY Family History: Diabetes, Heart Disease, Hypertension SOCIAL HISTORY Smoke: <1 pack per day ALCOHOL: social Drugs: Marijuana Lives: with Family CURRENT MEDICATIONS CURRENT MEDICATIONS Current Medications Medications (Trade) Dose Ordered Sig/Corey Route PRN Reason Start Time Stop Time Status Last Admin Dose Admin Aspirin (Aspirin Chewable) 324 mg 1X ONCE PO 12/21/21 11:30 12/21/21 11:31 DC 12/21/21 11:55 Nitroglycerin (Nitrostat) 0.4 mg PRN Q5MIN PRN SL CHEST PAIN 12/21/21 11:30 12/21/21 11:55 ALLERGIES ALLERGIES: Coded Allergies: No Known Drug Allergies (Unverified , 12/21/21) ROS Review of System 14 point ROS conducted with pertinent positives noted above in HPI PHYSICAL EXAM General: Alert, Oriented X3, Cooperative, No acute distress HEENT: Atraumatic Lungs: Clear to auscultation Heart: Regular rate Abdomen: Soft, Other (obese) Extremities: Normal pulses, Other (1+ bilateral LE edema ) Skin: No significant lesion Neuro: Normal speech, Sensation intact Psych/Mental Status: Mental status NL, Mood NL MUSCULOSKELETAL: Osteoarthritic changes both hands VITALS/I&O VITALS/I&O: Vital Signs Date Time Temp Pulse Resp B/P (MAP) Pulse Ox O2 Delivery O2 Flow Rate FiO2 12/21/21 14:38 98.6 69 18 167/91 (116) 98 Room Air 98.6 LABS Lab: Laboratory Tests Test 12/21/21 11:22 12/21/21 14:05 White Blood Count 5.9 x10^3/uL (4.0-11.0) Red Blood Count 4.83 x10^6/uL (4.30-5.70) Hemoglobin 14.6 g/dL (13.0-17.5) Hematocrit 43.9 % (39.0-53.0) Mean Corpuscular Volume 91 fL (79-100) Mean Corpuscular Hemoglobin 30 pg (25-35) Mean Corpuscular Hemoglobin Concent 33 g/dL (31-37) Red Cell Distribution Width 14.2 % (11.5-14.5) Platelet Count 216 x10^3/uL (140-400) Neutrophils (%) (Auto) 43 % (31-73) Lymphocytes (%) (Auto) 42 % (24-48) Monocytes (%) (Auto) 9 % (0-9) Eosinophils (%) (Auto) 5 % (0-3) H Basophils (%) (Auto) 1 % (0-3) Neutrophils # (Auto) 2.5 x10^3/uL (1.8-7.7) Lymphocytes # (Auto) 2.5 x10^3/uL (1.0-4.8) Monocytes # (Auto) 0.5 x10^3/uL (0.0-1.1) Eosinophils # (Auto) 0.3 x10^3/uL (0.0-0.7) Basophils # (Auto) 0.1 x10^3/uL (0.0-0.2) D-Dimer (Ely) 0.45 ug/mlFEU (0.00-0.50) Sodium Level 141 mmol/L (136-145) Potassium Level 3.9 mmol/L (3.5-5.1) Chloride Level 104 mmol/L (98-107) Carbon Dioxide Level 30 mmol/L (21-32) Anion Gap 7 (6-14) Blood Urea Nitrogen 13 mg/dL (8-26) Creatinine 1.0 mg/dL (0.7-1.3) Estimated GFR (Cockcroft-Gault) 107.7 BUN/Creatinine Ratio 13 (6-20) Glucose Level 112 mg/dL (70-99) H Calcium Level 8.6 mg/dL (8.5-10.1) Magnesium Level 1.8 mg/dL (1.8-2.4) Total Bilirubin 0.2 mg/dL (0.2-1.0) Aspartate Amino Transferase (AST) 39 U/L (15-37) H Alanine Aminotransferase (ALT) 72 U/L (16-63) H Alkaline Phosphatase 91 U/L (46-116) Creatine Kinase 706 U/L (39-308) H Troponin I High Sensitivity 9 ng/L (4-75) 10 ng/L (4-75) XT-Ozv-X-Type Natriuretic Peptide 171 pg/mL (0-124) H Total Protein 7.6 g/dL (6.4-8.2) Albumin 3.2 g/dL (3.4-5.0) L Albumin/Globulin Ratio 0.7 (1.0-1.7) L Lipase 67 U/L (73-393) L Ethyl Alcohol Level < 10 mg/dL (0-10) Laboratory Tests 12/21/21 11:22 Laboratory Tests 12/21/21 11:22 ASSESSMENT/PLAN ASSESSMENT/PLAN 1. Chest pain/pressure, atpyical. AMI ruled out. EKG without significant acute changes 2. Accelerated hypertension 3. Eleavted LFTS 4. Morbid obesity 5. Tobaccoism; discussed/encouraged cessation 6. Suspected RUFINO 7. Elevated CK Recommendations Lipids Echo to assess LV systolic function EKG in am BP control Hydralazine IV PRN Needs outpatient sleep study Discussed/encourage diet/lifestyle modification Supportive care LISA COX MD 12/21/21 9293: CARDIAC CONSULT ASSESSMENT/PLAN ASSESSMENT/PLAN Patient seen and examined He is feeling better this afternoon. I agree with our nurse practitioners assessment and plan. Chest pain/pressure, atpyical. AMI ruled out. EKG without significant acute manzanares ges. Continue to monitor. Lipid panel. Echocardiogram. Accelerated hypertension. Continue medical treatment. Hydralazine as needed. Eleavted LFTS Morbid obesity Tobaccoism; discussed/encouraged cessation Suspected RUFINO outpatient sleep study. Elevated CK. Monitor. CYN BECKFORD APRN Dec 21, 2021 15:04 LISA COX MD Dec 21, 2021 17:17
[2021-12-21 15:50] LABS: CHOLESTEROL 208 mg/dL (0-200); HDLC 39 mg/dL (40-60); TRIGLYCERIDES 557 mg/dL (0-150); VLDLC 111 mg/dL (0-40)
[2021-12-21 15:52] LABS: CHOLESTEROL/HDL RATIO 5.3
[2021-12-21] MEDS ORDERED: hydrALAZINE 20 MG/ML VIAL. IVP PRN (16:00)
[2021-12-21] MEDS ORDERED: ALBUTEROL SULFATE 2.5 MG/3 ML NEBU. NEB PRN (16:00)
[2021-12-21] MEDS ORDERED: guaiFENesin DM 200MG/20MG 10 ML SYRUP PO PRN (16:00)
[2021-12-21] MEDS ORDERED: FAMOTIDINE 20 MG/2 ML VIAL IVP ONE (17:00)
[2021-12-21 19:19] VITALS: BP 154/73
[2021-12-21] MEDS: HEPARIN for SUB-Q USE 5,000 UNIT/ML VIAL. SQ SCH (21:01)
[2021-12-21 22:19] VITALS: BP 137/65
--- NOTE | 2021-12-22 00:55 | NUR ---
Pt with c/o congestion in chest. Monitor showed bradycardia in the 40's. No chest pain but some SOB. O2 at 2L administered. Pt reports relief of SOB. Treated congestion with guafenesin. Pt concerned with potential sleep apnea. Discussed sleep study and expectations regarding. Pt works nights so not sleeping much. No other complaints. Cont to monitor congestion.
[2021-12-22 02:27] VITALS: BP 130/69
[2021-12-22 04:59] LABS: CALCIUM 8.5 mg/dL (8.5-10.1); GFR 107.7
--- NOTE | 2021-12-22 05:15 | EKG ---
[facility] [address] [place] [address] Test Date: 2021-12-22 Test Time: 05:05:56 Pat Name: AGUSTÍN HOOD Department: Room: [facility] Gender: M Physician Scientist: SOLIS : 1995 Requested By: CYN BECKFORD Order Number: [id number] Reading MD: Nickolas Nagy Measurements Intervals [place] Rate: 64 P: 48 NC: 210 QRS: 48 QRSD: 84 T: 23 QT: 402 QTc: 414 Interpretive Statements SINUS RHYTHM Electronically Signed On 12-25-2021 14:09:51 CLINICAL LAB ASSISTANT by Nickolas Nagy
[2021-12-22] MEDS: HEPARIN for SUB-Q USE 5,000 UNIT/ML VIAL. SQ SCH ×2 (06:00→14:00)
[2021-12-22 06:22] LABS: HEMOGLOBIN A1C 5.9 % (4.8-5.6)
[2021-12-22 07:00] VITALS: BP 134/64
[2021-12-22] MEDS ORDERED: ASPIRIN ENTERIC COATED 81 MG TABLET.DR. PO SCH (08:00)
[2021-12-22] MEDS ORDERED: FAMOTIDINE 20 MG/2 ML VIAL IVP SCH (09:00)
--- NOTE | 2021-12-22 09:17 | PDOC ---
CARDIO Progress Notes Date and Time Date of Service 12/22/21 Time of Evaluation 0910 Subjective Subjective: No Chest Pain, No shortness of breath, No Palpitations, Other (c/o nasal congestion and fatigue ) Vitals Vitals Vital Signs Date Time Temp Pulse Resp B/P (MAP) Pulse Ox O2 Delivery O2 Flow Rate FiO2 12/22/21 07:00 98.2 67 20 134/64 (87) 97 Nasal Cannula 98.2 12/22/21 02:27 2.0 Weight Weight [ ] Input and Output Intake and Output Intake and Output 12/22/21 07:00 Intake Total 600 ml Balance 600 ml Intake Oral 600 ml # Voids 2 Laboratory Labs Laboratory Tests Test 12/21/21 11:22 12/21/21 14:05 12/21/21 20:36 12/22/21 03:15 White Blood Count 5.9 x10^3/uL (4.0-11.0) Red Blood Count 4.83 x10^6/uL (4.30-5.70) Hemoglobin 14.6 g/dL (13.0-17.5) Hematocrit 43.9 % (39.0-53.0) Mean Corpuscular Volume 91 fL (79-100) Mean Corpuscular Hemoglobin 30 pg (25-35) Mean Corpuscular Hemoglobin Concent 33 g/dL (31-37) Red Cell Distribution Width 14.2 % (11.5-14.5) Platelet Count 216 x10^3/uL (140-400) Neutrophils (%) (Auto) 43 % (31-73) Lymphocytes (%) (Auto) 42 % (24-48) Monocytes (%) (Auto) 9 % (0-9) Eosinophils (%) (Auto) 5 % (0-3) Basophils (%) (Auto) 1 % (0-3) Neutrophils # (Auto) 2.5 x10^3/uL (1.8-7.7) Lymphocytes # (Auto) 2.5 x10^3/uL (1.0-4.8) Monocytes # (Auto) 0.5 x10^3/uL (0.0-1.1) Eosinophils # (Auto) 0.3 x10^3/uL (0.0-0.7) Basophils # (Auto) 0.1 x10^3/uL (0.0-0.2) D-Dimer (Ely) 0.45 ug/mlFEU (0.00-0.50) Sodium Level 141 mmol/L (136-145) 141 mmol/L (136-145) Potassium Level 3.9 mmol/L (3.5-5.1) 4.0 mmol/L (3.5-5.1) Chloride Level 104 mmol/L (98-107) 104 mmol/L (98-107) Carbon Dioxide Level 30 mmol/L (21-32) 26 mmol/L (21-32) Anion Gap 7 (6-14) 11 (6-14) Blood Urea Nitrogen 13 mg/dL (8-26) 11 mg/dL (8-26) Creatinine 1.0 mg/dL (0.7-1.3) 1.0 mg/dL (0.7-1.3) Estimated GFR (Cockcroft-Gault) 107.7 107.7 BUN/Creatinine Ratio 13 (6-20) Glucose Level 112 mg/dL (70-99) 90 mg/dL (70-99) Hemoglobin A1c 5.9 % (4.8-5.6) Calcium Level 8.6 mg/dL (8.5-10.1) 8.5 mg/dL (8.5-10.1) Magnesium Level 1.8 mg/dL (1.8-2.4) Total Bilirubin 0.2 mg/dL (0.2-1.0) Aspartate Amino Transf (AST/SGOT) 39 U/L (15-37) Alanine Aminotransferase (ALT/SGPT) 72 U/L (16-63) Alkaline Phosphatase 91 U/L (46-116) Creatine Kinase 706 U/L (39-308) Troponin I High Sensitivity 9 ng/L (4-75) 10 ng/L (4-75) 11 ng/L (4-75) UT-Eey-S-Type Natriuretic Peptide 171 pg/mL (0-124) Total Protein 7.6 g/dL (6.4-8.2) Albumin 3.2 g/dL (3.4-5.0) Albumin/Globulin Ratio 0.7 (1.0-1.7) Triglycerides Level 557 mg/dL (0-150) Cholesterol Level 208 mg/dL (0-200) LDL Cholesterol, Calculated mg/dL (0-100) VLDL Cholesterol, Calculated 111 mg/dL (0-40) Non-HDL Cholesterol Calculated 169 mg/dL (0-129) HDL Cholesterol 39 mg/dL (40-60) Cholesterol/HDL Ratio 5.3 Lipase 67 U/L (73-393) Thyroid Stimulating Hormone (TSH) 1.312 uIU/mL (0.358-3.74) Ethyl Alcohol Level < 10 mg/dL (0-10) Physical Exam HEENT: Neck Supple W Full Motion Chest: Symmetric LUNGS: Other (diminished bases) Heart: S1S2, RRR (SR. SB noted overnight with lowest HR 38. No pauses) Abdomen: Soft N/T Extremities: No Edema Neurology: alert, oriented, follow commands Assessment Assessment 1. Chest pain/pressure, atpyical. AMI ruled out. EKG without significant acute changes 2. Accelerated hypertension; now controlled 3. Elevated LFTS 4. Morbid obesity 5. Tobaccoism; reinforced cessation 6. Suspected RUFINO 7. Elevated CK 8. Dyslipidemia 9. Sinus bradycardia; noted overnight with lowest HR 38. No pauses. Presently SR while awake. Recommendations Echo to assess LV systolic function ASA therapy Add statin Continue amlodipine for BP control Needs outpatient sleep study Discussed/encourage diet/lifestyle modification Supportive care Justicifation of Admission Dx: Justifications for Admission: Justification of Admission Dx: Yes Comments: Chest pain Hypertensive urgency CYN BECKFORD APRN Dec 22, 2021 09:17
--- NOTE | 2021-12-22 10:35 | NUR ---
SS following for discharge planning. SS reviewed pt chart and discussed with pt RN. Pt is from home and is currently requiring oxygen at two liters nasal canula. Cardiology consulted. ECHO ordered. SS will continue to follow for discharge planning.
[2021-12-22 10:50] VITALS: BP 136/75
--- NOTE | 2021-12-22 12:47 | CARD ---
MR#: [id number] Date of Study: 12/22/2021 Ordering Physician: CYN BECKFORD, Referring Physician: CYN BECKFORD, Olimpia: Derrick oCrey [facility] APPROVED REPORT EXAM: Two-dimensional and M-mode echocardiogram with Doppler and color Doppler. Other Information Quality : FairHR: 65bpm Rhythm : NSR INDICATION Chest Pain RISK FACTORS Hypertension Obesity Smoking 2D DIMENSIONS Left Atrium(2D)3.6 (1.6-4.0cm)IVSd1.0 (0.7-1.1cm) Aortic Root(2D)3.5 (2.0-3.7cm)LVDd5.5 (3.9-5.9cm) LVOT Diameter2.5 (1.8-2.4cm)PWd1.0 (0.7-1.1cm) LVDs3.2 (2.5-4.0cm)FS (%) 40.9 % SV104.0 mlLVEF(%)71.2 (>50%) Aortic Valve AoV Peak Jeff.117.2cm/sAoV VTI23.9cm AO Peak GR.5.5mmHgLVOT Peak Jeff.89.8cm/s AO Mean GR.3mmHgAVA (VMAX)3.78cm2 Mitral Valve MV E Nnnbhloz84.3cm/sMV E Peak Gr.3mmHg MV DECEL [id number] A Gapzxzoe74.9cm/s MV E Mean Gr.1mmHgE/A Ratio1.7 Pulmonary Valve PV Peak Ukptbxvq39.2cm/s Tricuspid Valve TR P. Sohldvzu060sv/sTR Peak Gr.22mmHg Pulmonary Vein S1 Cgpyeife93.9cm/sD2 Ystvgcsw21.7cm/s LEFT VENTRICLE The left ventricle is normal size. There is normal left ventricular wall thickness. The left ventricu lar systolic function is normal and the ejection fraction is within normal range. EF 55% There is nor mal LV segmental wall motion. The left ventricular diastolic function and filling is normal for age. No left ventricle thrombus noted on this study. There is no ventricular septal defect visualized. The re is no left ventricular aneurysm. There is no mass noted in the left ventricle. RIGHT VENTRICLE The right ventricle is normal size. There is normal right ventricular wall thickness. The right ventr icular systolic function is normal. ATRIA The left atrium size is normal. The right atrium size is normal. The interatrial septum is intact wit h no evidence for an atrial septal defect or patent foramen ovale as noted on 2-D or Doppler imaging. AORTIC VALVE The aortic valve is normal in structure and function. The aortic valve is trileaflet. Doppler and Col or Flow revealed no significant aortic regurgitation. There is no significant aortic valvular stenosi s. There is no aortic valvular vegetation. MITRAL VALVE The mitral valve is normal in structure and function. There is no evidence of mitral valve prolapse. There is no mitral valve stenosis. Doppler and Color-flow revealed trace mitral regurgitation. TRICUSPID VALVE The tricuspid valve is normal in structure and function. Doppler and Color Flow revealed trace tricus pid regurgitation. There is no tricuspid valve prolapse or vegetation. There is no tricuspid valve st enosis. PULMONIC VALVE Doppler and Color Flow revealed no pulmonic valvular regurgitation. There is no pulmonic valvular sukhdeep nosis. GREAT VESSELS The aortic root is normal in size. The ascending aorta is normal in size. The IVC is normal in size a nd collapses >50% with inspiration. PERICARDIAL EFFUSION There is no pleural effusion. There is no evidence of significant pericardial effusion. Critical Notification Critical Value: No <Conclusion> The left ventricular systolic function is normal and the ejection fraction is within normal range. EF 55% There is normal LV segmental wall motion. Signed by : Carlos Greer, Electronically Approved : 12/22/2021 12:46:55
[2021-12-22] MEDS ORDERED: ASPI-886 PO (12:59)
[2021-12-22] MEDS ORDERED: AMLO-186 PO (12:59)
[2021-12-22] MEDS ORDERED: ATOR40TA59 PO (12:59)
--- NOTE | 2021-12-22 13:00 | DISCH ---
DISCHARGE INSTRUCTIONS Condition on Discharge Condition on Discharge: Stable Activity After Discharge Activity Instructions for Disc: Resume previous activity, Activity as tolerated Exercise Instruction after Dis: Walk 30 min, 5 x per week Driving Instructions after Dis: Do not drive today Weight Bearing Status after Di: As tolerated Diet after Discharge Diet after Discharge: Cardiac Follow-Up Follow up with: PCP within 2 weeks of discharge Follow Up With: Cardiology as needed or as scheduled CLIVE SPENCER MD Dec 22, 2021 13:00
--- NOTE | 2021-12-22 17:39 | NUR ---
Discharge Note: AGUSTÍN HOOD Discharge instructions and discharge home medications reviewed with Patient and a copy given. All questions have been answered and understanding verbalized.
== END 2021-12-22 17:41 | disposition home or self-care (01) ==
LOC: ER 11:04 → 6 SOUTH 12:05
PROVIDERS: ADMIT Internal Medicine; ATTEND Internal Medicine
DX: R07.89 Other chest pain (principal); E66.01 Morbid (severe) obesity due to excess calories; E78.1 Pure hyperglyceridemia; R74.01 Elevation of levels of liver transaminase levels; I10 Essential (primary) hypertension; R09.81 Nasal congestion; R53.83 Other fatigue; E78.5 Hyperlipidemia, unspecified; F12.90 Cannabis use, unspecified, uncomplicated; F17.200 Nicotine dependence, unspecified, uncomplicated; Z79.899 Other long term (current) drug therapy; Z98.890 Other specified postprocedural states; Z68.42 Body mass index [BMI] 45.0-49.9, adult
CPT/HCPCS: 36415; 71045; 80048; 80053; 80061; 82550; 83036; 83690; 83735; 83880; 84443; 84484; 85025; 85379; 93005; 93306; 96372; 96374; 96376; 99285; G0378; G0480; J1644; J3490; G0379; C8929

== ENCOUNTER 2022-01-04 06:00 | Emergency (ER) | payer OTHER ==
[~2022-01-04] VITALS: Ht 190.5 cm; Wt 183.8 kg
[~2022-01-04 06:00] MED LIST changes: +AMLO-186 PO; +ASPI-886 PO; +ATOR40TA59 PO
--- NOTE | 2022-01-04 06:47 | PHYS DOC ---
Past Medical History Past Medical History: No Pertinent History Additional Past Medical Histor: HEART DISEASE Past Surgical History: No Surgical History Smoking Status: Current Every Day Smoker Alcohol Use: None Drug Use: Marijuana General Adult EDM: Chief Complaint: SHORTNESS OF BREATH HPI: HPI: Patient is a 26 year old male who presents with cough, wheezing, shortness of breath. Symptoms have been ongoing for the past few days. He describes some generalized chest tightness. No focal chest pain or pressure. He denies production of sputum with cough. He denies hemoptysis. He denies fevers or chills. He denies dizziness, diaphoresis, abdominal pain, nausea vomiting. Denies lower [place] pain or swelling. He denies dyspnea with exertion, PND, orthopnea symptoms. Denies syncope or near syncope. He denies recent travel, surgery, hospitalization. He is not vaccinated gets COVID-19. He smokes tobacco, smokes marijuana. He has hypertension and high cholesterol. Sounds like he is only intermittently compliant with his medications. Does not currently have a primary care physician with whom he can follow-up. Review of Systems: Review of Systems: Constitutional: Denies fever or chills. [] HENT: Denies nasal congestion or sore throat. [] Respiratory: Wheezing, dyspnea, nonproductive cough Cardiovascular: Chest pressure, no peripheral edema, no syncope GI: Denies abdominal pain, nausea, vomiting Musculoskeletal: Denies back pain or joint pain. [] Integument: Denies rash. [] Neurologic: Denies headache, focal weakness or sensory changes. Dizziness, vertigo, weakness, syncope Psychiatric: Denies depression or anxiety. [] Heart Score: C/O Chest Pain: Yes HEART Score for Chest Pain: HEART Score for Chest Pain Response (Comments) Value History Moderately Suspicious 1 ECG Nonspecific Repolarizatio 1 Age < 45 0 Risk Factors 1 or 2 Risk Factors 1 Total 3 Risk Factors: Risk Factors: DM, Current or recent (<one month) smoker, HTN, HLP, family history of CAD, obesity. Risk Scores: Score 0 - 3: 2.5% MACE over next 6 weeks - Discharge Home Score 4 - 6: 20.3% MACE over next 6 weeks - Admit for Clinical Observation Score 7 - 10: 72.7% MACE over next 6 weeks - Early Invasive Strategies Allergies: Allergies: Allergies Coded Allergies Type Severity Reaction Last Updated Verified No Known Drug Allergies 12/21/21 No Physical Exam: PE: Constitutional: Well developed, well nourished, no acute distress, non-toxic appearance. [] HENT: Normocephalic, atraumatic Eyes: Sclera are anicteric, conjunctive are clear Neck: Normal range of motion, no tenderness, supple, no stridor. Acute midline, no JVD Cardiovascular:Heart rate regular rhythm, +2 radial and +2 dorsalis pedis pulses bilaterally. No cyanosis. Warm and well-perfused Lungs & Thorax: Inspiratory and expiratory wheezes bilaterally. Mildly diminished breath sounds at bilateral bases. No rales, rhonchi. No stridor. No tachypnea. Equal chest rise, no retractions, no cyanosis, no evidence of respiratory distress Abdomen: Bowel sounds normal, soft, no tenderness, no masses, no pulsatile masses. [] Skin: Warm, dry, no erythema, no rash. [] Back: No tenderness, no CVA tenderness. [] Extremities: No tenderness, no cyanosis, no clubbing, ROM intact, bilateral, symmetric lower extremity/ ankle and pedal nonpitting edema. No calf tenderness. Neurologic: Alert and oriented X 3, normal motor function, normal sensory function, no focal deficits noted. [] Psychologic: Affect is flat. Current Patient Data: Vital Signs: Vital Signs Date Time Temp Pulse Resp B/P (MAP) Pulse Ox O2 Delivery O2 Flow Rate FiO2 01/04/22 06:05 98.1 84 21 142/85 (104) 98 Room Air 98.1 EKG: EKG: EKG is interpreted at 0815 Rhythm is sinus RAte is 87 bpm [place] is normal No STEMI No acute ischemia Radiology/Procedures: Radiology/Procedures: IMAGING REPORT Signed PATIENT: AGUSTÍN HOOD TACCOUNT: [id number] : 1995 LOCATION: ER AGE: 26 SEX: M EXAM STATUS: REG ER ORD. PHYSICIAN: NELLI LOCK DO REASON: dyspnea, cough PROCEDURE: CHEST PA & LATERAL PA and lateral chest. HISTORY: Dyspnea, cough PA and lateral views were taken of the chest. Lungs are free of confluent areas of infiltrate. Heart is normal in size. There is no effusion. IMPRESSION: 1. No acute infiltrates. Electronically signed by: Scott Nath MD (01/04/2022 7:48 AM) [facility] DICTATED and SIGNED BY: SCOTT NATH MD DATE: 01/04/22 [id number] Course & Med Decision Making: Course & Med Decision Making Pertinent Labs and Imaging studies reviewed. (See chart for details) She is given a DuoNeb. He feels much better. Lung sounds are clear. He manifest evidence of respiratory distress or hypoxia. I recommended cessation of smoking tobacco and marijuana. Emergency department work-up is unremarkable for any other acute life-threatening process. I discussed all the findings, differential diagnosis and plan of care. He has already been given outpatient resources to establish care with a primary care physician. Strict return precautions are given. He verbalized understanding. Dragon Disclaimer: Bibi Disclaimer: This electronic medical record was generated, in whole or in part, using a voice recognition dictation system. Departure Departure Impression: Primary Impression: Dyspnea Qualified Codes: R06.00 - Dyspnea, unspecified Additional Impressions: Bronchospasm Tobacco use Disposition: HOME / SELF CARE / HOMELESS Condition: STABLE Referrals: NO PCP (PCP) Patient Instructions: Bronchospasm, Adult, Shortness of Breath Additional Instructions: Use the prescription inhaler as needed/as directed. Please stop smoking tobacco, stop smoking marijuana. Return to the ER for severe chest pain, coughing up blood, temperature 100.4 or higher, severe dizziness, weakness, vomiting or other concerns. Please take your blood pressure medicine and cholesterol medication as directed. Contact your primary care physician for follow-up. Scripts Albuterol Sulfate (VENTOLIN HFA INHALER) 18 Gm Hfa.aer.ad 2 PUFF INH Q4HRS for WHEEZING, #1 INH 2 Refills Prov: NELLI LOCK DO 01/04/22 NELLI LOCK DO Jan 04, 2022 06:47
[2022-01-04] MEDS ORDERED: IPRATRPIUM/ALBUTEROL 0.5/2.5MG 3 ML NEBU. NEB ONE (07:00)
[2022-01-04 07:31] LABS: BASO # 0.1 x10^3/uL (0.0-0.2); BASO % 1 % (0-3); EOS # 0.3 x10^3/uL (0.0-0.7); EOS % 4 % (0-3); HEMATOCRIT 43.8 % (39.0-53.0); HEMOGLOBIN 14.3 g/dL (13.0-17.5); LYMPH # 3.2 x10^3/uL (1.0-4.8); LYMPH % 41 % (24-48); MEAN CORPUSCULAR HEMOGLOBIN 30 pg (25-35); MEAN CORPUSCULAR HGB CONC 33 g/dL (31-37); MEAN CORPUSCULAR VOLUME 91 fL (79-100); MONO # 0.6 x10^3/uL (0.0-1.1); MONO % 7 % (0-9); NEUT # 3.6 x10^3/uL (1.8-7.7); NEUT % 47 % (31-73); PLATELET COUNT 222 x10^3/uL (140-400); RED BLOOD COUNT 4.81 x10^6/uL (4.30-5.70); RED CELL DISTRIBUTION WIDTH 14.3 % (11.5-14.5); WHITE BLOOD COUNT 7.7 x10^3/uL (4.0-11.0)
[2022-01-04 07:41] LABS: CALCIUM 8.4 mg/dL (8.5-10.1); CREATININE 1.1 mg/dL (0.7-1.3); GFR 96.4; POTASSIUM 4.1 mmol/L (3.5-5.1)
[2022-01-04 07:48] LABS: ALBUMIN 3.5 g/dL (3.4-5.0); ALBUMIN/GLOBULIN RATIO 0.8 (1.0-1.7); TOTAL BILIRUBIN 0.2 mg/dL (0.2-1.0); TOTAL PROTEIN 7.9 g/dL (6.4-8.2)
--- NOTE | 2022-01-04 07:50 | RAD ---
PA and lateral chest. HISTORY: Dyspnea, cough PA and lateral views were taken of the chest. Lungs are free of confluent areas of infiltrate. Heart is normal in size. There is no effusion. IMPRESSION: 1. No acute infiltrates. Electronically signed by: Scott Enriquez MD (01/04/2022 7:48 AM) [facility]
[2022-01-04 09:32] LABS: INFLUENZA A PATIENT NEGATIVE (NEGATIVE); INFLUENZA B PATIENT NEGATIVE (NEGATIVE)
[2022-01-04] MEDS ORDERED: VENTOLIN HFA18 GM INH (09:57)
[2022-01-04 10:13] VITALS: BP 148/74
--- NOTE | 2022-01-05 07:51 | EKG ---
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
== END 2022-01-04 10:13 | disposition home or self-care (01) ==
LOC: ER 06:00
DX: R06.02 Shortness of breath (principal); J98.01 Acute bronchospasm; R07.89 Other chest pain; Z20.822 Contact with and (suspected) exposure to COVID-19; I10 Essential (primary) hypertension; E78.00 Pure hypercholesterolemia, unspecified; Z72.0 Tobacco use
CPT/HCPCS: 36415; 71046; 80053; 83880; 84484; 85025; 85379; 87428; 93005; 94640; 99285-25